=== PATIENT | male | born 1995 | race Caucasian/White ===

== ENCOUNTER 2019-05-13 22:24 | Inpatient (IN) ==
[2019-05-13] MEDS ORDERED: ACETAMINOPHEN 325 MG TABLET ONE (22:40)
[2019-05-13] MEDS ORDERED: ACETAMINOPHEN 325 MG TABLET PO ONE (22:49)
[2019-05-13] MEDS ORDERED: ONDANSETRON 4 MG/2 ML VIAL IV STA (23:00)
[2019-05-13] MEDS ORDERED: ORPHENADRINE 60 MG/2 ML VIAL IV STA (23:00)
[2019-05-13] MEDS ORDERED: SODIUM CHLORIDE 0.9% 2,000 ML IV STA (23:00)
[2019-05-13 23:23] LABS: Basophils % 0.1 % (0.0-0.8); Eosinophils % 0.1 % (0.00-10.9); Hematocrit 41.3 VOL% (42.0-52.0); Hemoglobin 14.3 GM/DL (14.0-18.0); Immature Granulocytes % 0.4 %; Immature Granulocytes Absolute 0.03 #; Lymphocytes # 0.5 10*3/uL (1.4-4.0); Lymphocytes % 6.9 % (21.2-54.2); Mean Corpuscular HGB Conc 34.6 GM/DL (32-36); Mean Corpuscular Volume 90.2 FL (87-102); Mean Platelet Volume 11.1 FL (9.6-12.0); Monocytes % 9.4 % (1.7-12.7); Neutrophils % 83.1 % (38.7-73.9); Platelet Count 174 T/CUMM (130-400); Red Blood Count 4.58 MC/CUMM (3.8-5.5); Red Cell Distribution Width 11.9 % (9.3-17.3); White Blood Count 7.6 T/CUMM (4-12)
[2019-05-13 23:24] LABS: Apearance,Urine CLEAR (Clear); Bilirubin,Urine Negative (Negative); Blood, Urine Moderate mg/dL (Negative); Glucose,Urine (UA) Negative (Negative); Ketones,Urine Negative (Negative); Mucus,Urine Occasional /LPF (Occasional); Nitrite,Urine Negative (Negative); Protein,Urine Negative; RBC,Urine 1 /HPF (0-4); Urine Color Yellow (Yellow); Urine Specific Gravity 1.009 (1.001-1.035); Urine Urobilinogen < 2.0 EU/DL (0.2-1.0); WBC,Urine <1 /HPF (0-6)
[2019-05-13 23:29] LABS: INR 1.1; PT Patient Result 12.2 SECS (9.6-12.2)
[2019-05-14 00:05] LABS: Alanine Aminotransferase 105 U/L (16-61); Albumin 4.2 G/DL (3.4-5.0); Alkaline Phosphatase 69 U/L (45-117); Aspartate Amino Transferase 286 U/L (0-37); Blood Urea Nitrogen 15 MG/DL (7-18); Calcium 8.8 MG/DL (8.5-10.1); Glucose 96 MG/DL (74-106); Osmolality,Calculated 275.7 MOS/KG (273-304); Total Protein 7.7 G/DL (6.4-8.3); Troponin I < 0.015 NG/ML (0.00-0.045)
[2019-05-14] MEDS ORDERED: IBUPROFEN 800 MG TABLET ONE (00:16)
[2019-05-14] MEDS ORDERED: IBUPROFEN 800 MG TABLET PO STA (00:26)
[2019-05-14] MEDS ORDERED: SODIUM CHLORIDE 0.9% 1,000 ML IV STA (00:34)
[2019-05-14] MEDS ORDERED: NICOTINE 21 MG/24 HR PATCH TRANSDERM PRN (01:23)
[2019-05-14] MEDS ORDERED: MORPHINE 4 MG/1 ML VIAL IV PRN (01:23)
[2019-05-14] MEDS ORDERED: diphenhydrAMINE CAP 25 MG CAPSULE PO PRN (01:23)
[2019-05-14] MEDS ORDERED: BISACODYL 5 MG TABLET PO PRN (01:23)
[2019-05-14] MEDS ORDERED: ONDANSETRON 4 MG/2 ML VIAL IV PRN (01:23)
[2019-05-14] MEDS ORDERED: guaiFENesin/DM ER 600-30 MG TABLET PO PRN (01:23)
[2019-05-14] MEDS ORDERED: PROMETHAZINE 25 MG/1 ML VIAL IM PRN (01:23)
[2019-05-14] MEDS ORDERED: traZODone 50 MG TABLET PO PRN (01:23)
[2019-05-14] MEDS: SODIUM CHLORIDE 0.9% 1,000 ML IV SCH ×3 (02:30→19:05)
[2019-05-14 05:25] LABS: Basophils % 0.1 % (0.0-0.8); Eosinophils % 0.1 % (0.00-10.9); Hematocrit 36.6 VOL% (42.0-52.0); Hemoglobin 12.4 GM/DL (14.0-18.0); Immature Granulocytes % 0.3 %; Immature Granulocytes Absolute 0.02 #; Lymphocytes % 13.5 % (21.2-54.2); Mean Corpuscular HGB Conc 33.9 GM/DL (32-36); Platelet Count 151 T/CUMM (130-400); Red Blood Count 3.98 MC/CUMM (3.8-5.5); Red Cell Distribution Width 11.9 % (9.3-17.3); White Blood Count 7.3 T/CUMM (4-12)
[2019-05-14 05:52] LABS: Albumin 3.2 G/DL (3.4-5.0); Bilirubin,Total 0.7 MG/DL (0.2-1.0); Calcium 7.5 MG/DL (8.5-10.1); Osmolality,Calculated 280.3 MOS/KG (273-304); Total Protein 6.1 G/DL (6.4-8.3)
[2019-05-14] MEDS: POTASSIUM CHLORIDE 20 MEQ TABLET PO PRN ×3 (09:28→15:36)
[2019-05-14] MEDS: ACETAMINOPHEN 325 MG TABLET PO PRN (13:10)
[2019-05-15] MEDS: ACETAMINOPHEN 325 MG TABLET PO PRN ×4 (00:41→20:30)
[2019-05-15] MEDS: SODIUM CHLORIDE 0.9% 1,000 ML IV SCH ×5 (01:39→21:43)
[2019-05-15 09:13] LABS: Calcium 8.1 MG/DL (8.5-10.1); Osmolality,Calculated 278.3 MOS/KG (273-304)
[2019-05-16] MEDS: SODIUM CHLORIDE 0.9% 1,000 ML IV SCH (04:24)
[2019-05-16 06:22] VITALS: BP 121/71
[2019-05-16 06:35] LABS: Calcium 8.6 MG/DL (8.5-10.1); Osmolality,Calculated 280.1 MOS/KG (273-304)
== END 2019-05-16 10:46 | disposition home or self-care (01) | DRG 923 ==
LOC: N.EDINP 22:24 → N.ED 22:24 → N.2E 05-14 02:22 → SUATTDRO 05-14 12:30
PROVIDERS: ATTEND Internal Medicine Nephrology